=== PATIENT | male | born 1970 | race Caucasian/White ===

== ENCOUNTER 2019-09-20 08:41 | Day surgery (SDC) | payer SELFPAY ==
[~2019-09-20] VITALS: Ht 175.3 cm; Wt 107.0 kg
[2019-09-20] VITALS (8 sets, daily range): BP systolic 110–154; BP diastolic 77–113
[2019-09-20] MEDS ORDERED: NO HOME MEDS (09:41)
[2019-09-20] MEDS ORDERED: cefazolin/dext.iso 2gm/100ml 100 ML IV ONE (09:53)
[2019-09-20] MEDS ORDERED: famotidine 20mg tablet PO ONE (09:53)
[2019-09-20] MEDS ORDERED: ringers solution, lacted 1,000 ML IV SCH ×2 (09:53→10:22)
[2019-09-20] MEDS ORDERED: ceFAZolin 1,000 MG in NS 100ML IVPB IV ONE (09:55)
[2019-09-20] MEDS ORDERED: ondansetron/PF 4mg/2ml inj IV PRN (10:25)
[2019-09-20] MEDS ORDERED: morphine 4 MG/ML inj SYRINge IV PRN (10:25)
[2019-09-20] MEDS ORDERED: hydrALAZINE 20mg/ml inj. IV PRN (10:25)
[2019-09-20] MEDS ORDERED: fentaNYL/PF 50MCG/1 ML 2ML syringe IV PRN ×2 (10:25)
[2019-09-20] MEDS ORDERED: morphine 2 MG/ML inj. syringe IV PRN (10:25)
[2019-09-20] MEDS ORDERED: labetalol 20mg/4ml (5mg/ml) syringe IV PRN (10:25)
[2019-09-20 10:27] LABS: BASOPHILS % (AUTO) 0.6 % (0-1); EOSINOPHILS # (AUTO) 0.4 X10'3 (0-0.9); EOSINOPHILS % (AUTO) 5.3 % (0-6); LYMPHOCYTES # (AUTO) 2.2 X10'3 (1.1-4.8); LYMPHOCYTES % (AUTO) 28.3 % (21-51); MEAN CORPUSCULAR HEMOGLOBIN 28.5 PG (27.0-31.0); MEAN CORPUSCULAR HGB CONC 33.1 g/dL (33.0-36.5); MEAN CORPUSCULAR VOLUME 86.3 FL (78-98); MEAN PLATELET VOLUME 8.5 FL (7.4-10.4); MONOCYTES # (AUTO) 0.7 X10'3 (0-0.9); MONOCYTES % (AUTO) 9.2 % (2-12); NEUTROPHILS # (AUTO) 4.4 X10'3 (1.8-7.7); NEUTROPHILS % (AUTO) 56.6 % (42-75); PRE OP HEMATOCRIT 43.2 % (42.0-52.0); PRE OP HEMOGLOBIN 14.3 g/dL (14.0-17.9); PRE OP PLATELET COUNT 222 X10'3 (140-440); RED BLOOD COUNT 5.01 X10'6 (4.70-6.10); RED CELL DISTRIBUTION WIDTH 14.3 % (11.5-14.5)
[2019-09-20] MEDS ORDERED: ceFAZolin 1000mg inj ONE (12:22)
[2019-09-20] MEDS ORDERED: BUPIVAcaine/PF 2.5 mg/ml (0.25%) 30ml vial ONE (12:22)
[2019-09-20] MEDS ORDERED: LIDOcaine 2% (20mg/ml) 5ml vial ONE (12:23)
[2019-09-20] MEDS ORDERED: propofol inj 20 ML IV ONE (12:23)
[2019-09-20] MEDS ORDERED: sevoflurane 250ml liquid IH ONE (12:26)
[2019-09-20] MEDS ORDERED: ondansetron/PF 4mg/2ml inj ONE (12:26)
[2019-09-20] MEDS ORDERED: dexamethasone sod phosphate 10mg/ml inj ONE (12:26)
[2019-09-20] MEDS ORDERED: fentaNYL/PF 50MCG/1 ML 2ML syringe ONE (13:50)
--- NOTE | 2019-09-20 14:35 | NUR ---
Received from OR via BED, accompanied by Anesthesiologist DR GIVENS-- and report given by Anesthesiolgist. PATIENT A&OX4, DENIES PAIN, V/S WNL, NEUROVASCULAR CHECKS INTACT, 20G PIV RUE, SCD ON, SPLINT DRESSING TO LUE HAND CDI
--- NOTE | 2019-09-20 15:35 | NUR ---
PATIENT A&OX4, DENIES PAIN, V/S WNL, NEUROVASCULAR CHECKS INTACT, 20G PIV RUE D/C, SCD OFF, SPLINT DRESSING TO LUE HAND CDI. I HAVE REVIEWED D/C INSTRUCTIONS WITH PATIENT AND FAMILY AND THEY HAVE VERBALIZED UNDERSTANDING. PATIENT D/C HOME WITH ALL BELONGINGS AND FAMILY GAVE TRANSPORT HOME.
== END 2019-09-20 15:35 | disposition home or self-care (01) ==
LOC: PAS 08:41
PROVIDERS: ATTEND Orthopaedic Surgery
DX: S62.617A Displaced fracture of proximal phalanx of left little finger, initial encounter for closed fracture (principal); E66.9 Obesity, unspecified; Z68.34 Body mass index [BMI] 34.0-34.9, adult; X58.XXXA Exposure to other specified factors, initial encounter; Y93.89 Activity, other specified; Y92.89 Other specified places as the place of occurrence of the external cause; Y99.8 Other external cause status; Z79.899 Other long term (current) drug therapy
CPT/HCPCS: 26735; 36415; 82948; 85025; 93005; C1713; J0690; J2001; J2270; J2704; J3010; J3490; J7120; A4215; A4618; A6449; A7000; J1100; J2405